=== PATIENT | female | born 1960 | race Caucasian/White ===

== ENCOUNTER 2021-12-12 19:39 | Emergency (ER) | payer MEDICAID ==
[~2021-12-12] VITALS: Ht 170.2 cm; Wt 102.3 kg
[~2021-12-12 19:39] MED LIST: METO-292 PO; ONDA-103 PO
[2021-12-12 19:59] VITALS: BP 153/72
[2021-12-12 20:37] LABS: BASOPHILS # (AUTO) 0.1 X10'3 (0-0.2); BASOPHILS % (AUTO) 0.4 % (0-1); EOSINOPHILS # (AUTO) 0.3 X10'3 (0-0.9); EOSINOPHILS % (AUTO) 2.5 % (0-6); HEMATOCRIT 35.4 % (35.0-45.0); HEMOGLOBIN 11.5 g/dl (12.0-16.0); LYMPHOCYTES # (AUTO) 1.2 X10'3 (1.1-4.8); LYMPHOCYTES % (AUTO) 9.7 % (21-51); MEAN CORPUSCULAR HEMOGLOBIN 24.5 PG (27.0-31.0); MEAN CORPUSCULAR HGB CONC 32.5 g/dL (33.0-36.5); MEAN CORPUSCULAR VOLUME 75.2 FL (78-98); MONOCYTES # (AUTO) 0.8 X10'3 (0-0.9); MONOCYTES % (AUTO) 6.2 % (2-12); NEUTROPHILS # (AUTO) 10.3 X10'3 (1.8-7.7); NEUTROPHILS % (AUTO) 81.2 % (42-75); PLATELET COUNT 291 X10'3 (140-440); RED BLOOD COUNT 4.71 X10'6 (4.20-5.60); RED CELL DISTRIBUTION WIDTH 17.1 % (11.5-14.5); WHITE BLOOD COUNT 12.7 X10'3 (4.5-11.0)
[2021-12-12 20:50] LABS: ALANINE AMINOTRANSFERASE 18 U/L (12-78); ALBUMIN 3.6 G/DL (3.4-5.0); ALKALINE PHOSPHATASE 58 IU/L (46-116); ANION GAP 10 (8-16); ASPARTATE AMINO TRANSFERASE 11 U/L (10-37); BILIRUBIN,TOTAL 0.3 MG/DL (0.1-1.0); BLOOD UREA NITROGEN 35 MG/DL (7-18); BUN/CREATININE RATIO 20.5 (6.6-38.0); CALCIUM 8.9 MG/DL (8.5-10.1); CHLORIDE 99 MMOL/L (99-107); CREATININE 1.71 MG/DL (0.40-0.90); GLUCOSE 232 MG/DL (70-104); LIPASE 121 U/L (73-393); POTASSIUM 4.3 MMOL/L (3.5-5.1); SODIUM 134 MMOL/L (135-145); TOTAL CARBON DIOXIDE 25.5 MMOL/L (24-32); TOTAL PROTEIN 7.3 G/DL (6.4-8.2); eGFR 30 ML/MIN
[2021-12-12 22:10] LABS: CLARITY,URINE CLEAR (Clear); GLUCOSE, URINE >=1000 mg/dl (Neg); KETONES,URINE NEGATIVE (Neg); LEUKOCYTE ESTERASE ,URINE SMALL (Neg); NITRITES, URINE NEGATIVE (Neg); OCCULT BLOOD,URINE TRACE-INTACT (Neg); PH,URINE 5.5 (4.8-8.0); PROTEIN,URINE NEGATIVE (Neg); UROBILINOGEN,URINE 0.2 E.U/dL (0.2-1.0)
[2021-12-12 22:11] LABS: URINE HCG NEGATIVE (NEG)
[2021-12-12 22:12] LABS: COLOR,URINE STRAW (Yellow); UA COLLECTION TYPE CLN CATCH MIDSTREAM
[2021-12-12 22:17] LABS: BACTERIA,URINE 1+ /HPF (Neg); MUCUS STRANDS NONE SEEN /LPF (Neg); RBC,URINE 0-2 /HPF (0-2); SQUAMOUS EPITHELIAL CELL,UR NONE SEEN /LPF (FEW); TRANSITIONAL EPI CELLS,URINE FEW /HPF; WBC CLUMPS,URINE FEW /HPF (NEGATIVE); WBC,URINE 20-30 /HPF (0-4); YEAST FEW /HPF (NEGATIVE)
[2021-12-13] MEDS ORDERED: CefTRIAXone 2gm/D5W 50ml BAG 50 ML IV ONE (00:45)
[2021-12-13] MEDS ORDERED: normal saline 1000ML IV soln IV ONE (00:45)
[2021-12-13] MEDS ORDERED: piperacillin/tazo 3.375gm/50ml 50 ML IV ONE (02:45)
[2021-12-13] MEDS ORDERED: METR-159 PO (02:54)
[2021-12-13] MEDS ORDERED: CIPR-260 PO (02:54)
[2021-12-13] MEDS ORDERED: metroNIDAZOLE 500mg tablet PO ONE (02:55)
[2021-12-13] MEDS ORDERED: ciprofloxacin 250mg tablet PO ONE (02:55)
== END 2021-12-13 03:43 | disposition home or self-care (01) ==
LOC: ER 19:40
DX: K57.92 Diverticulitis of intestine, part unspecified, without perforation or abscess without bleeding (principal); N39.0 Urinary tract infection, site not specified; R35.0 Frequency of micturition; R10.32 Left lower quadrant pain; R30.0 Dysuria; I10 Essential (primary) hypertension; E11.9 Type 2 diabetes mellitus without complications; G89.29 Other chronic pain; F41.9 Anxiety disorder, unspecified; Z90.49 Acquired absence of other specified parts of digestive tract; Z98.51 Tubal ligation status; Z88.1 Allergy status to other antibiotic agents; Z79.2 Long term (current) use of antibiotics; Z79.899 Other long term (current) drug therapy
CPT/HCPCS: 36415; 74176; 80053; 81001; 81025; 83605; 83690; 84145; 85025; 87040; 87088; 96365; 96366; 99284; J0696; J7030

== ENCOUNTER → 2023-10-24 | Outpatient (CLI) | payer MEDICAID ==
[~2023-10-24] MED LIST changes: +CIPR-260 PO
== END | disposition home or self-care (01) ==
LOC: MRI 12:38
PROVIDERS: ATTEND Chiropractor
DX: M54.6 Pain in thoracic spine (principal); M25.552 Pain in left hip; M46.1 Sacroiliitis, not elsewhere classified; M99.9 Biomechanical lesion, unspecified; M99.03 Segmental and somatic dysfunction of lumbar region; M62.830 Muscle spasm of back; M99.02 Segmental and somatic dysfunction of thoracic region
CPT/HCPCS: 72146

== ENCOUNTER 2024-09-02 08:32 | Emergency (ER) | payer MEDICAID ==
[~2024-09-02] VITALS: Ht 170.2 cm; Wt 67.4 kg
[2024-09-02 08:33] VITALS: TEMP 98.3
[2024-09-02 10:01] LABS: BASOPHILS % (AUTO) 0.3 % (0-1); EOSINOPHILS # (AUTO) 0.2 X10'3 (0-0.9); EOSINOPHILS % (AUTO) 1.7 % (0-6); HEMOGLOBIN 15.5 g/dl (12.0-16.0); LYMPHOCYTES # (AUTO) 0.6 X10'3 (1.1-4.8); LYMPHOCYTES % (AUTO) 5.8 % (21-51); MEAN CORPUSCULAR HEMOGLOBIN 28.1 PG (27.0-31.0); MEAN CORPUSCULAR HGB CONC 33.6 g/dL (33.0-36.5); MEAN CORPUSCULAR VOLUME 83.5 FL (78-98); MEAN PLATELET VOLUME 8.1 FL (7.4-10.4); MONOCYTES # (AUTO) 0.5 X10'3 (0-0.9); MONOCYTES % (AUTO) 4.8 % (2-12); NEUTROPHILS # (AUTO) 9.6 X10'3 (1.8-7.7); NEUTROPHILS % (AUTO) 87.4 % (42-75); PLATELET COUNT 216 X10'3 (140-440); RED BLOOD COUNT 5.51 X10'6 (4.20-5.60); RED CELL DISTRIBUTION WIDTH 15.2 % (11.5-14.5)
[2024-09-02 10:22] LABS: ALANINE AMINOTRANSFERASE 14 U/L (12-78); ALBUMIN 3.9 G/DL (3.4-5.0); ALBUMIN/GLOBULIN RATIO 1.1 (1.1-1.5); ALKALINE PHOSPHATASE 80 IU/L (46-116); ANION GAP 10 (8-16); ASPARTATE AMINO TRANSFERASE 14 U/L (10-37); BILIRUBIN,TOTAL 0.3 MG/DL (0.1-1.0); BLOOD UREA NITROGEN 33 MG/DL (7-18); BUN/CREATININE RATIO 28.7 (10.0-20.0); CHLORIDE 101 MMOL/L (99-107); CREATININE 1.15 MG/DL (0.40-0.90); GLUCOSE 119 MG/DL (70-104); POTASSIUM 3.9 MMOL/L (3.5-5.1); SODIUM 137 MMOL/L (135-145); TOTAL CARBON DIOXIDE 26.2 MMOL/L (24-32); TOTAL PROTEIN 7.4 G/DL (6.4-8.2); eCRCL 48 ML/MIN; eGFR 48 ML/MIN
[2024-09-02] MEDS ORDERED: iohexol 300mg/ml 100ml inj. ONE (10:58)
--- NOTE | 2024-09-02 11:47 | RADIOLOGY REPORT ---
Exam: CT CT ABDOMEN PELVIS W/ IV CONTRAST History: rectal pain TECHNIQUE: Multiple contiguous axial CT images of the abdomen and pelvis were obtained with intraveno us contrast. The images were reformatted to generate coronal and sagittal reconstructions. 100 cc of Omnipaque 350 contrast was injected intravenously. All CT scans at this medical facility are performed using dose modulation techniques as appropriate t o a performed exam including the following:Automated exposure control was utilized; adjustment of the MA and/or KV according to patient size; and use of iterative reconstruction technique. Radiation Dose Information: CT Dose: CTDI volume is 23 mGy. Dose-length product is 1297 mGy*cm Comparison: CT ABDOMEN PELVIS on DOS: 12/13/21 FINDINGS: Gallbladder is surgically absent. The liver, pancreas, kidneys, adrenal glands, and spleen appear wi thin normal limits. There is no evidence of abdominal lymphadenopathy. There is no free fluid or free air. The stomach grossly appears unremarkable. The small and large bowel loops demonstrate normal caliber and distribution. There are scattered diverticula in the distal colon without evidence of acute dive rticulitis. There is large amount of stool in the rectum. A normal appearing appendix is seen in the right lower quadrant abdomen. There are calcified atherosclerotic changes in the abdominal aorta. The IVC appears within normal li mits. The bladder appears within normal limits the degree of distention. Pelvic organ is unremarkable. Ther e is no evidence of a pelvic mass or lymphadenopathy. There is no free fluid collection. Lung bases are clear. There is no acute osseous abnormality. IMPRESSION: 1. There is no acute process in the abdomen and pelvis. 2. Large amount of stool in the rectum, possibly impacted. 3. Distal colon diverticulosis. HS:Y
[2024-09-02] MEDS ORDERED: NA P230E PR (12:22)
[2024-09-02] MEDS ORDERED: POLY17PO10 PO (12:22)
--- NOTE | 2024-09-02 12:23 | Physician Documentation ---
History of Present Illness ~ Chief Complaint: Constipation Stated Complaint: BOWEL COMPLICATIONS Time Seen by MD: 09:00 Primary Medical Doctor: YOLY Mode of Arrival: POV HPI Patient is here for constipation. She also has a rectal pain. It has been going on for a few days she is able to pass stool but feels like not all that is passing. She is not vomiting no abdominal pain no fevers or chills or any other symptoms. Medication Reconciliation Allergies: Uncoded Allergies: PCN (Allergy, Intermediate, rash, itching, 09/08/16) allergy added per MD; pt c/o of itching; has recently developed a rash; pt recalls she has Hx of reaction to ampicillin; Tolerated Rocephin during hospital stay 08/28 without incident Scheduled Ciprofloxacin HCl (Cipro), 1 TAB PO Q12H Metoclopramide HCl (Reglan), 1 TAB PO Q8H Na Phos,M-B/Na Phos,Di-Ba (Fleet Enema Extra), 19 GM OK BID Ondansetron HCl (Ondansetron HCl), 1 TAB PO Q6H PRN Polyethylene Glycol 3350* (Miralax*), 1 PKT PO DAILY Past Medical History Past Medical History: Hypertension, Diabetes, Chronic Back Pain, Anxiety, Depression Past Surgical History: cholecystectomy, tubal ligation Patient History: Patient reports no known family medical history. Alcohol Use: None Drug Use: none Lives with: Family Lives In: Home Occupation: disabled Physical Exam Vital Signs: Temperature: 98.3, Source: Oral, Heart Rate: 79, Respiratory Rate: 16, BP: 131/71, Pulse Oximetry: 99, Weight: 67.400 Oxygen Flow Rate: 0 Physical Exam General: Awake and Alert, no acute distress. HEENT: Conjunctiva pink, Sclera clear, Mucus Membranes moist. Neck: Supple without masses and tenderness. Resp: Unlabored. Lungs clear to auscultation bilaterally. Heart: Regular Rate and rhythm, normal S1 and S2 without murmur, rub or gallop. Abdomen: Soft and non tender no organomegaly Rectal: There is no stool present in the rectal vault on digital exam. Extremities: No cyanosis,clubbing or edema. Skin: Warm and Dry. Neuro: GCS 15; no focal deficits Progress Results/Orders Results/Orders Orders - MARYAM PINO MD Ct Abdomen Pelvis (09/02/24 11:10) Completed Orders - MARYAM PINO MD CMP (09/02/24 09:29) Cbc/Diff (09/02/24 09:29) Ct Abdomen Pelvis (09/02/24 11:10) Iohexol 300mg/Ml 100ml Inj. (Omnipaque-3 (09/02/24 10:58) Vital Signs 09/02/24 09/02/24 09/02/24 09/02/24 08:33 09:17 09:19 10:59 Temp 98.3 Pulse 86 80 79 Resp 15 15 15 16 B/P (MAP) 167/68 133/68 (89) 131/71 (91) Pulse Ox 98 99 99 O2 Flow Rate 0 Laboratory Tests Test 09/02/24 09:49 White Blood Count 11.0 Red Blood Count 5.51 Hemoglobin 15.5 Hematocrit 46.0 H Mean Corpuscular Volume 83.5 Mean Corpuscular Hemoglobin 28.1 Mean Corpuscular Hemoglobin Concent 33.6 Red Cell Distribution Width 15.2 H Platelet Count 216 Mean Platelet Volume 8.1 Neutrophils (%) (Auto) 87.4 H Lymphocytes (%) (Auto) 5.8 L Monocytes (%) (Auto) 4.8 Eosinophils (%) (Auto) 1.7 Basophils (%) (Auto) 0.3 Neutrophils # (Auto) 9.6 H Lymphocytes # (Auto) 0.6 L Monocytes # (Auto) 0.5 Eosinophils # (Auto) 0.2 Basophils # (Auto) 0.0 CBC Comment Sodium Level 137 Potassium Level 3.9 Chloride Level 101 Carbon Dioxide Level 26.2 Anion Gap 10 Blood Urea Nitrogen 33 H Creatinine 1.15 H Estimated GFR/1.73 m2 48 BUN/Creatinine Ratio 28.7 H Glucose Level 119 H Calcium Level 9.0 Total Bilirubin 0.3 Aspartate Amino Transf (AST/SGOT) 14 Alanine Aminotransferase (ALT/SGPT) 14 Alkaline Phosphatase 80 Total Protein 7.4 Albumin 3.9 Globulin 3.5 Albumin/Globulin Ratio 1.1 Chemistry Comments Medical Decision Making Findings Patient is here for constipation with rectal pain. She does not have stool in the rectal vault that requires disimpaction. Her labs are reassuring CT scan of the abdomen and pelvis does show stool burden in the rectum but again not at the level where a digital disimpaction was helpful. I recommend clear liquid diet for today wrote prescriptions for fleets enema and MiraLax. Returned for pain vomiting fever or any concerns. Departure Disposition: HOME / SELF CARE / HOMELESS Impression: Primary Impression: Constipation Qualified Codes: K59.00 - Constipation, unspecified Condition: Stable Discharge Instructions: Constipation, Adult Additional Instructions: Clear liquid diet today and then a bland diet avoid dairy high fat foods things that make you constipated. Returned for pain fever vomiting or any concerns. Follow up with your doctor this week. Referrals: NO PRIMARY CARE PROVIDER (PCP) Prescriptions Polyethylene Glycol 3350* (Miralax*) 1 Packet Packet 1 PKT PO DAILY for constipation, #10 PKT dissolve in water Prov: MARYAM PINO MD 09/02/24 Na Analisa DollB/Ramón Buck (Fleet Enema Extra) 19 Gram-7 Gram/197 Ml Enema 19 GM OK BID for constipation, #4 APPLIC Prov: MARYAM PINO MD 09/02/24 Education Educated: Patient Educated regarding: diagnosis, treatment, prognosis, need for follow up Signature Scribe Signature: no scribe Attestation: no scribe MARYAM PINO MD Sep 02, 2024 12:23
[2024-09-02 12:46] VITALS: BP 126/59; PULSE 73; RESP 15; O2SAT 100
== END 2024-09-02 12:48 | disposition home or self-care (01) ==
LOC: ER 08:32
DX: K59.00 Constipation, unspecified (principal); K62.89 Other specified diseases of anus and rectum; I10 Essential (primary) hypertension; E11.9 Type 2 diabetes mellitus without complications; F41.9 Anxiety disorder, unspecified; F32.A Depression, unspecified; Z88.1 Allergy status to other antibiotic agents; Z90.49 Acquired absence of other specified parts of digestive tract; Z98.51 Tubal ligation status; Z79.899 Other long term (current) drug therapy
CPT/HCPCS: 36415; 74177; 80053; 85025; 99285; Q9967